=== PATIENT | female | born 1970 | race Caucasian/White ===

== ENCOUNTER 2019-11-01 01:10 | Inpatient (IN) | payer MEDICAID ==
[~2019-11-01] VITALS: Ht 177.8 cm; Wt 85.0 kg
[2019-11-01 01:45] LABS: BASOPHILS % (AUTO) 0.5 % (0-1); EOSINOPHILS % (AUTO) 0.3 % (0-6); HEMATOCRIT 40.7 % (35.0-45.0); HEMOGLOBIN 14.1 g/dl (12.0-16.0); LYMPHOCYTES # (AUTO) 0.9 X10'3 (1.1-4.8); MEAN CORPUSCULAR HEMOGLOBIN 34.4 PG (27.0-31.0); MEAN CORPUSCULAR HGB CONC 34.6 g/dL (33.0-36.5); MEAN CORPUSCULAR VOLUME 99.6 FL (78-98); MONOCYTES # (AUTO) 0.6 X10'3 (0-0.9); MONOCYTES % (AUTO) 7.3 % (2-12); NEUTROPHILS # (AUTO) 6.1 X10'3 (1.8-7.7); NEUTROPHILS % (AUTO) 79.9 % (42-75); PLATELET COUNT 265 X10'3 (140-440); RED BLOOD COUNT 4.09 X10'6 (4.20-5.60); RED CELL DISTRIBUTION WIDTH 13.4 % (11.5-14.5); WHITE BLOOD COUNT 7.6 X10'3 (4.5-11.0)
[2019-11-01 01:48] LABS: CLARITY,URINE CLEAR (Clear); COLOR,URINE YELLOW (Yellow); GLUCOSE, URINE NEGATIVE (Neg); KETONES,URINE NEGATIVE (Neg); LEUKOCYTE ESTERASE ,URINE NEGATIVE (Neg); NITRITES, URINE NEGATIVE (Neg); OCCULT BLOOD,URINE NEGATIVE (Neg); PROTEIN,URINE NEGATIVE (Neg); UROBILINOGEN,URINE 0.2 E.U/dL (0.2-1.0)
[2019-11-01 01:49] LABS: URINE HCG NEGATIVE (NEG)
[2019-11-01 01:51] LABS: UA COLLECTION TYPE FOLEY CATH
[2019-11-01 02:00] LABS: ALANINE AMINOTRANSFERASE 51 U/L (12-78); ALBUMIN 3.2 G/DL (3.4-5.0); ALBUMIN/GLOBULIN RATIO 1.1 (1.1-1.5); ALKALINE PHOSPHATASE 90 IU/L (46-116); ANION GAP 8 (8-16); ASPARTATE AMINO TRANSFERASE 33 U/L (10-37); BILIRUBIN,TOTAL 0.4 MG/DL (0.1-1.0); BLOOD UREA NITROGEN 6 MG/DL (7-18); BUN/CREATININE RATIO 7.1 (6.6-38.0); CALCIUM 7.7 MG/DL (8.5-10.1); CHLORIDE 109 MMOL/L (99-107); CREATININE 0.84 MG/DL (0.40-0.90); GLUCOSE 127 MG/DL (70-104); LIPASE 87 U/L (73-393); POTASSIUM 3.7 MMOL/L (3.5-5.1); SODIUM 140 MMOL/L (135-145); TOTAL CARBON DIOXIDE 22.8 MMOL/L (24-32); TOTAL PROTEIN 6.2 G/DL (6.4-8.2); eGFR 72 ML/MIN
[2019-11-01 02:01] LABS: URINE AMPHETAMINE SCREEN NEGATIVE (Neg); URINE BARBITUATE SCREEN NEGATIVE (Neg); URINE BENZODIAZEPINES SCREEN NEGATIVE (Neg); URINE CANNABINOID SCREEN NEGATIVE (Neg); URINE COCAINE SCREEN NEGATIVE (Neg); URINE METHADONE SCREEN NEGATIVE (Neg); URINE OPIATE SCREEN NEGATIVE (Neg); URINE PHENCYCLIDINE SCREEN NEGATIVE (Neg)
[2019-11-01] MEDS ORDERED: Dextrose 10%-water IV solution 1,000 ML IV SCH (02:50)
[2019-11-01] MEDS ORDERED: LOSA50TA3 PO (03:49)
[2019-11-01] MEDS ORDERED: SENN-93 PO (03:49)
[2019-11-01] MEDS ORDERED: INSULIN PUMP (03:49)
[2019-11-01] MEDS ORDERED: INSU100C4 SQ (03:49)
[2019-11-01] MEDS ORDERED: ACET-2119 PO (03:49)
[2019-11-01] MEDS ORDERED: LORA10TA7 PO (03:49)
[2019-11-01] MEDS ORDERED: AMYL1CAP52 PO (03:49)
[2019-11-01] MEDS ORDERED: AMIT-189 PO (03:49)
[2019-11-01] MEDS ORDERED: GABA-532 PO (03:49)
--- NOTE | 2019-11-01 04:07 | NUR ---
MD PERSON MADE AWARE OF PT TRENDING UP BLOOD SUGARS. RECEIVED VERBAL ORDER TO DECREASE THE DEXTROSE 10% DRIP FROM 150ML/HOUR TO 100ML/HOUR. WILL CONTINUE TO MONITOR.
[2019-11-01] MEDS ORDERED: magnesium Cl slow-release 64mg tablet PO PRN (04:35)
[2019-11-01] MEDS ORDERED: magnesium 2GM in 50ml NS 50 ML IV PRN (04:35)
[2019-11-01] MEDS ORDERED: potassium Cl 20 mEq SR tablet PO PRN ×2 (04:35)
[2019-11-01] MEDS ORDERED: dextrose ORAL solution 15 GM/59 ML bottle PO PRN ×2 (04:35)
[2019-11-01] MEDS ORDERED: acetaminophen 325mg tablet PO PRN (04:35)
[2019-11-01] MEDS ORDERED: ondansetron/PF 4mg/2ml inj IV PRN (04:35)
[2019-11-01] MEDS ORDERED: magnesium 4gm in 100ml NS 100 ML IV PRN (04:35)
[2019-11-01] MEDS ORDERED: MESSAGE TO PHARMACY PO ONE (04:35)
[2019-11-01] MEDS ORDERED: potassium CL 10mEq/100ml bag 100 ML IV PRN ×2 (04:35)
[2019-11-01] MEDS ORDERED: dextrose 50%-water 50ml dispensing syringe IV PRN ×2 (04:35)
[2019-11-01] MEDS ORDERED: glucagon, human recombinant 1mg kit SUBCUT PRN (04:35)
--- NOTE | 2019-11-01 04:49 | NUR ---
CALLED DR PADILLA REGARDING PT CALCIUM 7.7. PER MD, LEAVE ALONE FOR NOW "UNTIL ELECTROLYTES LEVEL OUT." WILL CONTINUE TO MONITOR.
--- NOTE | 2019-11-01 05:15 | NUR ---
Called Dr. Rios notified of BG 335, received orders to change IV fluid to D5 1/2 NS at 100ml/hr
--- NOTE | 2019-11-01 05:21 | NUR ---
Patient in room PCU 3014. I have received report from Lillian RODRIGUEZ and had the opportunity to ask questions and assume patient care.
[2019-11-01] MEDS ORDERED: dextrose 5%-1/2 normal saline 1,000 ML IV SCH (05:25)
[2019-11-01 05:34] VITALS: BP 140/65
[2019-11-01 05:34] LABS: HEMOGLOBIN A1C 8.2 % (4.5-6.2)
--- NOTE | 2019-11-01 06:15 | NUR ---
Problems reprioritized. Patient report given, questions answered & plan of care reviewed with Sintia RODRIGUEZ.
--- NOTE | 2019-11-01 06:19 | NUR ---
Patient in room PCU 3014. I have received report from El RODRIGUEZ and had the opportunity to ask questions and assume patient care.
--- NOTE | 2019-11-01 07:12 | NUR ---
PAGER ID: [phone] MESSAGE: Room 3014B Camilla Mcelroy: Patient's morning blood sugar 413. She does have ACHS protocol orderd and D5 1/2NS running. Do you want a initial loading dose as well? Addendum: 11/01/19 at 0712 by Sintia Baer RN Page to Dr. Ash
[2019-11-01] MEDS: normal saline 1000ml 1,000 ML IV SCH ×2 (07:42→17:35)
[2019-11-01] MEDS: loratadine 10mg tablet PO SCH (07:43)
[2019-11-01] MEDS: losartan 50mg tablet PO SCH (07:44)
[2019-11-01] MEDS ORDERED: OMEGA-3/DHA/EPA/FISH OIL 1 EACH CAPSULE.DR PO SCH (08:00)
[2019-11-01] MEDS ORDERED: gabapentin 300mg capsule PO SCH (08:00)
[2019-11-01] MEDS: K and/or MAG REPLACEMENT MC SCH ×2 (08:00→20:00)
[2019-11-01] MEDS: insulin Lispro (HumaLOG) vial - multi-dose SQ SCH ×3 (08:40→18:51)
[2019-11-01 11:00] VITALS: BP 141/68
--- NOTE | 2019-11-01 11:50 | NUR ---
DM consult: Pt admitted d/t overdosing on insulin as a form of SI. Pt not appropriate for education at this time. Per H&P, pt has T1DM and is on insulin pump. Pt reports not being able to eat for 5 days and has watery excretions and stools are undigested food d/t a hx of pancreas dysfunction. Pt home medications lipase/protease/amylase recommended to help pt breakdown food not currently receiving, d/w pharmacy. Pt also has a hx of gastroparesis and reports usually being constipated and giving herself enemas at home. Pt not currently on any medications at home for gastroparesis. Pt will need written and verbal DM and gastroparesis education when appropriate prior to discharge. Pt currently on a carb controlled diet but pt is not eating, not meeting nutrient needs. Will continue to monitor. Addendum: 11/01/19 at [address] Amended: Links added. Addendum: 11/01/19 at [address] RD agree with note
[2019-11-01] MEDS: LIPASE/PROTEASE/AMYLASE 4,200 unit CAPSULE.DR PO SCH ×2 (13:19→18:03)
[2019-11-01 15:00] VITALS: BP 145/77
[2019-11-01 18:00] VITALS: BP 144/71
--- NOTE | 2019-11-01 18:25 | NUR ---
Patient in room PCU 3014. I have received report from Sintia RODRIGUEZ and had the opportunity to ask questions and assume patient care.
--- NOTE | 2019-11-01 18:31 | NUR ---
Problems reprioritized. Patient report given, questions answered & plan of care reviewed with Jackelyn RODRIGUEZ. Patient stable at time of transfer of care.
[2019-11-01] MEDS: insulin glargine (Lantus) pen - multi-dose SQ SCH (21:00)
--- NOTE | 2019-11-01 21:30 | NUR ---
Brit held due to NPO status for am abd/pelvic scan and labile BS. Discussed w/Segundo, MIKE and pt. HS BS: 206 requiring no treatment per protocol. This decision made as a result. CT Prep started. Pt. talkative and approp, affect mod. depressed. Co-operative w/POC, knowledgeable about DM I.
[2019-11-01 22:00] VITALS: BP 149/79
[2019-11-01] MEDS: diatr meglu/diatrizoate 30ml oral sol.-(3 dose) bottle PO SCH (22:01)
[2019-11-01] MEDS: amitriptyline 25mg tablet PO SCH (22:01)
[2019-11-01] MEDS: gabapentin 300mg capsule PO SCH (23:26)
[2019-11-02 02:00] VITALS: BP 137/73
[2019-11-02] MEDS: normal saline 1000ml 1,000 ML IV SCH ×3 (03:50→15:35)
[2019-11-02 05:40] LABS: ALBUMIN 3.3 G/DL (3.4-5.0); ANION GAP 10 (8-16); BLOOD UREA NITROGEN 7 MG/DL (7-18); CALCIUM 8.4 MG/DL (8.5-10.1); CHLORIDE 103 MMOL/L (99-107); CREATININE 0.88 MG/DL (0.40-0.90); GLUCOSE 334 MG/DL (70-104); MAGNESIUM 1.7 MG/DL (1.5-2.4); POTASSIUM 4.3 MMOL/L (3.5-5.1); SODIUM 134 MMOL/L (135-145); TOTAL CARBON DIOXIDE 20.7 MMOL/L (24-32); eGFR 69 ML/MIN
[2019-11-02 06:00] VITALS: BP 149/76
[2019-11-02 06:11] LABS: BASOPHILS # (AUTO) 0.1 X10'3 (0-0.2); BASOPHILS % (AUTO) 1.3 % (0-1); EOSINOPHILS # (AUTO) 0.1 X10'3 (0-0.9); EOSINOPHILS % (AUTO) 1.8 % (0-6); HEMATOCRIT 40.6 % (35.0-45.0); HEMOGLOBIN 13.8 g/dl (12.0-16.0); LYMPHOCYTES # (AUTO) 1.1 X10'3 (1.1-4.8); LYMPHOCYTES % (AUTO) 22.8 % (21-51); MEAN CORPUSCULAR HGB CONC 33.9 g/dL (33.0-36.5); MEAN CORPUSCULAR VOLUME 100.3 FL (78-98); MEAN PLATELET VOLUME 10.2 FL (7.4-10.4); MONOCYTES # (AUTO) 0.3 X10'3 (0-0.9); MONOCYTES % (AUTO) 6.9 % (2-12); NEUTROPHILS # (AUTO) 3.1 X10'3 (1.8-7.7); NEUTROPHILS % (AUTO) 67.2 % (42-75); PLATELET COUNT 252 X10'3 (140-440); RED BLOOD COUNT 4.05 X10'6 (4.20-5.60); RED CELL DISTRIBUTION WIDTH 13.3 % (11.5-14.5); WHITE BLOOD COUNT 4.7 X10'3 (4.5-11.0)
--- NOTE | 2019-11-02 06:42 | NUR ---
Problems reprioritized. Patient report given, questions answered & plan of care reviewed with Minesh RODRIGUEZ.
--- NOTE | 2019-11-02 06:56 | NUR ---
Patient in room PCU 3014. I have received report from Jackelyn RODRIGUEZ and had the opportunity to ask questions and assume patient care.
[2019-11-02] MEDS: diatr meglu/diatrizoate 30ml oral sol.-(3 dose) bottle PO SCH ×2 (07:15→21:00)
[2019-11-02] MEDS: K and/or MAG REPLACEMENT MC SCH ×2 (07:15→20:00)
--- NOTE | 2019-11-02 07:42 | NUR ---
Pt has been npo since 11/01 at 1800. will hold insulin until CTA complete. Addendum: 11/02/19 at 0743 by Minesh Whitehead RN Amended: Links added.
--- NOTE | 2019-11-02 10:38 | NUR ---
NPO for CTA of abdomen/Pelvis Addendum: 11/02/19 at 1039 by Minesh Whitehead RN Amended: Links added.
--- NOTE | 2019-11-02 10:54 | NUR ---
MD educated patient on the importance of walking and exercising while in hospital. Pt was receptive and willing to do both.
[2019-11-02 11:00] VITALS: BP 135/74
[2019-11-02] MEDS ORDERED: iohexol 300mg/ml 100ml inj. ONE (11:01)
--- NOTE | 2019-11-02 11:13 | NUR ---
DM consult: Pt on a 1798 mental health hold with a sitter per notes and documented with expressing SI, DM education not appropriate at this time. Will continue to follow. Addendum: 11/02/19 at [address] Amended: Links added.
[2019-11-02] MEDS: losartan 50mg tablet PO SCH (11:37)
[2019-11-02] MEDS: gabapentin 300mg capsule PO SCH ×3 (11:37→21:53)
[2019-11-02] MEDS: LIPASE/PROTEASE/AMYLASE 4,200 unit CAPSULE.DR PO SCH ×3 (11:37→17:23)
[2019-11-02] MEDS: loratadine 10mg tablet PO SCH (11:37)
[2019-11-02] MEDS: insulin Lispro (HumaLOG) vial - multi-dose SQ SCH ×2 (12:24→22:15)
--- NOTE | 2019-11-02 13:28 | NUR ---
Minesh [id number] Re: Camilla jamison CTA resulted and noted. Can patient eat and drink?
[2019-11-02 18:00] VITALS: BP 134/72
--- NOTE | 2019-11-02 18:45 | NUR ---
Problems reprioritized. Patient report given, questions answered & plan of care reviewed with Jackelyn RODRIGUEZ.
--- NOTE | 2019-11-02 18:48 | NUR ---
Patient in room PCU 3014. I have received report from Minesh RODRIGUEZ and had the opportunity to ask questions and assume patient care.
[2019-11-02] MEDS: amitriptyline 25mg tablet PO SCH (21:53)
[2019-11-02 22:00] VITALS: BP 149/74
[2019-11-02] MEDS: insulin glargine (Lantus) pen - multi-dose SQ SCH (22:16)
[2019-11-03 02:30] VITALS: BP 115/48
--- NOTE | 2019-11-03 06:31 | NUR ---
Problems reprioritized. Patient report given, questions answered & plan of care reviewed with Sandhya RODRIGUEZ.
--- NOTE | 2019-11-03 06:32 | NUR ---
Patient in room PCU 3014. I have received report from Jackelyn RODRIGUEZ and had the opportunity to ask questions and assume patient care. Patient asleep in bed. Sitter bedside. All immediate needs met.
--- NOTE | 2019-11-03 06:32 | NUR ---
Patient in room PCU 3014. I have received report from JENNIFER Hayden and had the opportunity to ask questions and assume patient care.
[2019-11-03 06:47] LABS: EOSINOPHILS # (AUTO) 0.1 X10'3 (0-0.9); EOSINOPHILS % (AUTO) 2.4 % (0-6); HEMATOCRIT 38.4 % (35.0-45.0); HEMOGLOBIN 13.1 g/dl (12.0-16.0); LYMPHOCYTES # (AUTO) 1.2 X10'3 (1.1-4.8); LYMPHOCYTES % (AUTO) 28.2 % (21-51); MEAN CORPUSCULAR HEMOGLOBIN 34.3 PG (27.0-31.0); MEAN CORPUSCULAR HGB CONC 34.1 g/dL (33.0-36.5); MEAN CORPUSCULAR VOLUME 100.5 FL (78-98); MEAN PLATELET VOLUME 9.1 FL (7.4-10.4); MONOCYTES # (AUTO) 0.3 X10'3 (0-0.9); MONOCYTES % (AUTO) 7.5 % (2-12); NEUTROPHILS # (AUTO) 2.5 X10'3 (1.8-7.7); NEUTROPHILS % (AUTO) 60.9 % (42-75); PLATELET COUNT 259 X10'3 (140-440); RED BLOOD COUNT 3.82 X10'6 (4.20-5.60); RED CELL DISTRIBUTION WIDTH 13.3 % (11.5-14.5); WHITE BLOOD COUNT 4.2 X10'3 (4.5-11.0)
[2019-11-03 06:54] LABS: ALBUMIN 3.1 G/DL (3.4-5.0); ANION GAP 13 (8-16); BLOOD UREA NITROGEN 7 MG/DL (7-18); BUN/CREATININE RATIO 8.5 (6.6-38.0); CHLORIDE 106 MMOL/L (99-107); CREATININE 0.82 MG/DL (0.40-0.90); GLUCOSE 140 MG/DL (70-104); MAGNESIUM 1.7 MG/DL (1.5-2.4); POTASSIUM 3.8 MMOL/L (3.5-5.1); SODIUM 138 MMOL/L (135-145); TOTAL CARBON DIOXIDE 19.5 MMOL/L (24-32); eGFR 74 ML/MIN
[2019-11-03 07:00] VITALS: BP 142/71
[2019-11-03] MEDS: LIPASE/PROTEASE/AMYLASE 4,200 unit CAPSULE.DR PO SCH ×3 (08:20→19:03)
[2019-11-03] MEDS: losartan 50mg tablet PO SCH (08:20)
[2019-11-03] MEDS: gabapentin 300mg capsule PO SCH ×2 (08:20→13:04)
[2019-11-03] MEDS: loratadine 10mg tablet PO SCH (08:20)
[2019-11-03] MEDS: enoxaparin 40mg/0.4ml syringe SQ SCH (08:21)
[2019-11-03] MEDS: K and/or MAG REPLACEMENT MC SCH ×2 (08:25→21:50)
[2019-11-03 11:00] VITALS: BP 185/85
--- NOTE | 2019-11-03 13:10 | NUR ---
Paged Ottoniel PAGER ID: [phone] MESSAGE: [phone]: Camilla Mcelroy pts family is at bedside, thanks! -Gege [phone]
[2019-11-03] MEDS ORDERED: bisacodyl 10mg suppository rectal RC PRN (13:30)
--- NOTE | 2019-11-03 13:31 | NUR ---
New orders for ducolax suppository PRN daily and miralax PRN for constipation Addendum: 11/03/19 at 1331 by Gege Lynn RN New orders from Dr. Aclazar
[2019-11-03] MEDS: insulin Lispro (HumaLOG) vial - multi-dose SQ SCH ×2 (13:36→19:07)
--- NOTE | 2019-11-03 13:41 | NUR ---
New orders from [facility] to decrease gabapentin dose to 200mg TID.
[2019-11-03 15:00] VITALS: BP 134/77
--- NOTE | 2019-11-03 18:14 | NUR ---
Problems reprioritized. Patient report given, questions answered & plan of care reviewed with JENNIFER Clark.
[2019-11-03 19:00] VITALS: BP 142/86
[2019-11-03 19:08] LABS: OCCULT BLOOD STOOL NEGATIVE (Neg)
[2019-11-03] MEDS ORDERED: gabapentin 100mg capsule PO SCH (21:00)
[2019-11-03] MEDS ORDERED: polyethylene glycol 3350 17gm powd pack PO SCH (21:00)
--- NOTE | 2019-11-03 21:48 | NUR ---
low glucose at 50. asymptomatic.
[2019-11-03] MEDS: amitriptyline 25mg tablet PO SCH (22:07)
[2019-11-03] MEDS: gabapentin 100mg capsule PO SCH (22:07)
[2019-11-03] MEDS: insulin glargine (Lantus) pen - multi-dose SQ SCH (22:09)
--- NOTE | 2019-11-03 22:10 | NUR ---
orders received for decreasing lantus to 6units to start titrating from there in am depending on sugar levels.
[2019-11-03 22:37] VITALS: BP 142/83
[2019-11-04 02:00] VITALS: BP 147/79
[2019-11-04 03:00] VITALS: BP 118/63
[2019-11-04 05:40] LABS: BASOPHILS % (AUTO) 1.1 % (0-1); EOSINOPHILS # (AUTO) 0.1 X10'3 (0-0.9); EOSINOPHILS % (AUTO) 2.2 % (0-6); HEMATOCRIT 37.4 % (35.0-45.0); HEMOGLOBIN 12.9 g/dl (12.0-16.0); LYMPHOCYTES # (AUTO) 1.2 X10'3 (1.1-4.8); LYMPHOCYTES % (AUTO) 31.4 % (21-51); MEAN CORPUSCULAR HEMOGLOBIN 34.3 PG (27.0-31.0); MEAN CORPUSCULAR HGB CONC 34.5 g/dL (33.0-36.5); MEAN CORPUSCULAR VOLUME 99.5 FL (78-98); MEAN PLATELET VOLUME 9.1 FL (7.4-10.4); MONOCYTES # (AUTO) 0.3 X10'3 (0-0.9); MONOCYTES % (AUTO) 8.7 % (2-12); NEUTROPHILS # (AUTO) 2.1 X10'3 (1.8-7.7); NEUTROPHILS % (AUTO) 56.6 % (42-75); PLATELET COUNT 246 X10'3 (140-440); RED BLOOD COUNT 3.76 X10'6 (4.20-5.60); RED CELL DISTRIBUTION WIDTH 13.1 % (11.5-14.5); WHITE BLOOD COUNT 3.7 X10'3 (4.5-11.0)
[2019-11-04 05:41] LABS: ALBUMIN 3.1 G/DL (3.4-5.0); ANION GAP 7 (8-16); BLOOD UREA NITROGEN 5 MG/DL (7-18); BUN/CREATININE RATIO 5.7 (6.6-38.0); CALCIUM 8.5 MG/DL (8.5-10.1); CHLORIDE 105 MMOL/L (99-107); CREATININE 0.87 MG/DL (0.40-0.90); GLUCOSE 224 MG/DL (70-104); MAGNESIUM 1.7 MG/DL (1.5-2.4); POTASSIUM 3.8 MMOL/L (3.5-5.1); SODIUM 137 MMOL/L (135-145); TOTAL CARBON DIOXIDE 25.3 MMOL/L (24-32); eGFR 69 ML/MIN
--- NOTE | 2019-11-04 06:30 | NUR ---
reported to days. noted pt resting w/ sitter in room.
--- NOTE | 2019-11-04 06:34 | NUR ---
Patient in room PCU 3014. I have received report from JENNIFER Davenport and had the opportunity to ask questions and assume patient care. Patient asleep in bed. Sitter bedside.
--- NOTE | 2019-11-04 06:37 | NUR ---
Patient in room [place] [address]. I have received report from JENNIFER South and had the opportunity to ask questions and assume patient care. Addendum: 11/04/19 at 0639 by Gege Lynn RN Patient in room [place] [address]. I have received report from JENNIFER Todd and had the opportunity to ask questions and assume patient care.
[2019-11-04 07:00] VITALS: BP 115/67
[2019-11-04] MEDS: K and/or MAG REPLACEMENT MC SCH (08:33)
[2019-11-04] MEDS: LIPASE/PROTEASE/AMYLASE 4,200 unit CAPSULE.DR PO SCH ×2 (08:34→12:12)
[2019-11-04] MEDS: loratadine 10mg tablet PO SCH (08:34)
[2019-11-04] MEDS: gabapentin 100mg capsule PO SCH ×2 (08:34→12:12)
[2019-11-04] MEDS: enoxaparin 40mg/0.4ml syringe SQ SCH (08:35)
[2019-11-04] MEDS: losartan 50mg tablet PO SCH (08:36)
[2019-11-04] MEDS: insulin Lispro (HumaLOG) vial - multi-dose SQ SCH ×3 (08:39→19:42)
--- NOTE | 2019-11-04 09:44 | NUR ---
New orders from [facility] to discontinue sitter and order social media marketing analyst consult.
[2019-11-04 11:00] VITALS: BP 127/76
--- NOTE | 2019-11-04 17:56 | NUR ---
[place] documentation: I have reviewed and agree with all interventions, assessments performed and documented by JENNIFER De Guzman. Student Medication Administration: For this medication-pass time frame, all medication were reviewed, dispensed, administered and documented per hospital policy by JENNIFER De Guzman.
--- NOTE | 2019-11-04 18:38 | NUR ---
Problems reprioritized. Patient report given, questions answered & plan of care reviewed with JENNIFER Alfaro. Patient stable at transfer of care.
[2019-11-04 19:00] VITALS: BP 156/81
== END 2019-11-04 21:20 | disposition home or self-care (01) | DRG 812 ==
LOC: ER 01:11 → PCU 3S 05:04 → CMPBEDREQ 11-02 12:18
PROVIDERS: ADMIT Internal Medicine; ATTEND Hospitalist
PROC: BW211ZZ Computerized Tomography (CT Scan) of Abdomen and Pelvis using Low Osmolar Contrast (ICD-10-PCS; principal; 2019-11-02)
DX: T38.3X2A Poisoning by insulin and oral hypoglycemic [antidiabetic] drugs, intentional self-harm, initial encounter (principal); E11.42 Type 2 diabetes mellitus with diabetic polyneuropathy; E11.649 Type 2 diabetes mellitus with hypoglycemia without coma; F41.9 Anxiety disorder, unspecified; G89.29 Other chronic pain; I10 Essential (primary) hypertension; F32.9 Major depressive disorder, single episode, unspecified; Z96.41 Presence of insulin pump (external) (internal); R19.7 Diarrhea, unspecified; K59.00 Constipation, unspecified; Z79.4 Long term (current) use of insulin; Z79.899 Other long term (current) drug therapy; Y92.89 Other specified places as the place of occurrence of the external cause; Z88.8 Allergy status to other drugs, medicaments and biological substances
CPT/HCPCS: 36415; 74177; 76700; 80048; 80053; 80305; 81003; 81025; 82272; 82948; 83036; 83690; 83735; 84443; 85025; 87045; 87046; 87081; 89055; 96365; 96366; 99285; G0378; J1650; J1815; J7030; Q9963; Q9967